=== PATIENT | male | born 1945 | race Caucasian/White ===

== ENCOUNTER 2023-05-02 13:57 | Outpatient (CLI) | payer MEDICARE, OTHER, SELFPAY ==
--- NOTE | ~2023-05-02 | US_ITS ---
EXAMINATION: US arterial ankle brachial ind DATE: 05/02/2023 15:04 INDICATION: Nonhealing left ankle ulcer. Varicose veins and lymphedema. TECHNIQUE: Segmental pressures and plethysmographic and Doppler waveforms of the brachial and lower e xtremity arteries were obtained. COMPARISON: None. FINDINGS: Right and left brachial artery pressures of 157 mm Hg and 157 mm Hg, respectively, are concordant (no rmal difference <= 30 mmHg). The right ankle-brachial index (YAMILE) is 0.59 (normal >= 0.9-1.0). The right great toe-brachial index (TBI) is 0.55 (normal >= 0.65). Parvus and tardus waveforms with delayed systolic upstrokes and dampe buck systolic peaks at both right posterior tibial and dorsalis pedis arteries. The left YAMILE is unable to be obtained due to inability to occlude the vessels at the left ankle. The left TBI is 0.85. Arterial Doppler waveforms are biphasic with brisk systolic upstrokes at both left posterior tibial and dorsalis pedis arteries. IMPRESSION: 1. Arterial occlusive disease to the right lower limb with moderately decreased TBI and mildly decrea sed right TBI with parvus et tardus waveforms at both the right posterior tibial and dorsalis pedis a rteries. 2. No significant arterial occlusive disease to the left lower limb with normal left TBI. Reviewed, dictated and finalized at location A. IMPRESSION: 1. Arterial occlusive disease to the right lower limb with moderately decreased TBI and mildly decreased right TBI with parvus et tardus waveforms at both the right posterior tibial and dorsalis pedis arteries. 2. No significant arterial occlusive disease to the left lower limb with normal left TBI.
== END 2023-05-02 13:58 | disposition home or self-care (01) ==
PROVIDERS: PCP Hospitalist
DX: I77.1 Stricture of artery (principal); I89.0 Lymphedema, not elsewhere classified
CPT/HCPCS: 93922